=== PATIENT | female | born 1980 | race Caucasian/White ===

== ENCOUNTER → 2017-08-11 | Outpatient (REF) | payer OTHER ==
[~2017-08-11] MED LIST: ASCO-182 PO; CHOL10005 PO; OMEG1600; PREN-161 PO
== END ==
LOC: ZZSENDIN 14:24
PROVIDERS: ATTEND Obstetrics & Gynecology
DX: N89.8 Other specified noninflammatory disorders of vagina (principal)
CPT/HCPCS: 84112

== ENCOUNTER 2017-08-12 17:56 | Inpatient (IN) | payer OTHER ==
[~2017-08-12] VITALS: Ht 174 cm; Wt 82.6 kg
--- NOTE | 2017-08-12 18:28 | History & Physical ---
History of Present Illness Age of Patient: 37 : 1 Para or TPAL: 0 Estimated Gestational Age: 39.5 Chief Complaint loss of fluid History of Present Illness Presents for possible ruptured membranes as she has been having a gush of fluid from time to time. Was checked in the office yesterday and was negative. No significant contraction pattern so far. Past Medical, Surgical, Family and Obstetric Histories reviewed. Please see [facility] chart. Review of Systems All Systems Reviewed/Normal: Yes, Except as Noted Exam General Exam General Apperance: Alert/Awake/No Acute Distress Neuro: No Gross deficits Cardiovascular: Regular Rate and Rhythm Abdomen: Soft, Non-Tender, Non-Distended, Gravid - Non-Tender Psychological: Alert & Oriented X3, Appropriate Mood & Affect Cervical Dialation: 1.5 Cervical Consistency: Soft Cervical Position: Anterior Station: -2 Presentation: Vertex Fetus Heart Tone Variabilty: Moderate FHT Accelerations: 15X15 FHT Category: I Medical Decision Making VTE Prophylasis: Adult Pharmacological Contraindicati: Pt at Low Risk for VTE Mechanical Contraindications: Pt at Low Risk for VTE Assessment and Plan Problems: (1) Amniotic fluid leaking Assessment & Plan: Will check amnisure to determine. Not grossly ruptured. Does not seem to be in active labor. CHRIS HUNG MD Aug 12, 2017 18:28
[2017-08-12 18:51] VITALS: BP 115/63; BMI 27.3
[2017-08-12] MEDS ORDERED: PREN-161 PO (18:56)
[2017-08-12] MEDS ORDERED: OMEG1600 (18:56)
[2017-08-12] MEDS ORDERED: ASCO-182 PO (18:56)
[2017-08-12] MEDS ORDERED: CHOL10005 PO (18:56)
[2017-08-12] MEDS ORDERED: OXYTOCIN 30 UNIT/NS 500 ML 500 ML IV PRN ×2 (19:11)
[2017-08-12] MEDS ORDERED: FAMOTIDINE(*) 20MG/50ML PREMIX 50 ML IVPB PRN (19:11)
[2017-08-12] MEDS ORDERED: METOCLOPRAMIDE 10 MG/2 ML SDV IVP PRN (19:15)
[2017-08-12] MEDS ORDERED: cefOXitin/DEX(*) 2GM/50ML PREM 50 ML IVPB PRN (19:15)
[2017-08-12] MEDS ORDERED: LIDOCAINE 1% LOCAL 300 MG/30ML INJ PRN (19:15)
[2017-08-12] MEDS ORDERED: MISOPROSTOL 25 MCG CAP PV PRN (19:15)
[2017-08-12] MEDS ORDERED: ACETAMINOPHEN 500 MG TAB PO PRN (19:15)
[2017-08-12] MEDS ORDERED: ONDANSETRON 4 MG/2 ML VIAL IVP PRN (19:15)
[2017-08-12] MEDS ORDERED: TERBUTALINE SULF 1 MG/ML VIAL SUBQ PRN (19:15)
[2017-08-12] MEDS ORDERED: fentaNYL CITR 100 MCG/2 ML AMP IVP PRN (19:15)
[2017-08-12] MEDS ORDERED: LIDOCAINE/SOD BICARB 8.4% SYR SC PRN (19:15)
[2017-08-12] MEDS ORDERED: LR(*) 1000 ML BAG 1,000 ML ONE (19:23)
[2017-08-12] MEDS: LR(*) 1000 ML BAG 1,000 ML IV SCH (19:35)
[2017-08-12 19:44] LABS: PLATELET COUNT, AUTOMATED 205 K/uL (150-450)
[2017-08-12 19:45] VITALS: Ht 174 cm; Wt 82.6 kg
[2017-08-12 20:00] VITALS: BP 111/71
[2017-08-13] VITALS (11 sets, daily range): BP systolic 84–105; BP diastolic 37–76
--- NOTE | 2017-08-13 00:20 | Labor Progress Note ---
Labor Subjective Progress Notes Subjective TC from nurse and following remote strip review. Cervical exam is essentially unchanged from my exam. Discussed with pt on phone. She describes her desire to manage her labor naturally and patiently. Her contractions have increased in strength and intensity since her admission. Baby has been category 1 and no uterine tenderness or fever. Vaginal Discharge/Fluid: Clear Fluid Labor Objective Vital Signs Vital Signs Date Time Temp Pulse Resp B/P (MAP) Pulse Ox O2 Delivery O2 Flow Rate FiO2 08/12/17 20:00 98.0 67 17 111/71 (84) 08/12/17 18:51 99 Room Air Cervical Dialation: 2 (rn exam) Cervical Effacement (%): 75 Cervical Consistency: Soft Cervical Position: Anterior Station: -2 Fetus FHT Category: I Other Result Diagram: 08/12/171934 Assessment and Plan Problems: (1) Amniotic fluid leaking Assessment & Plan: Discussed with pt options for management: passive vs active. It was explained that we cannot say for how long she has been ruptured and that the risk of infection increases with time and also that as infection develops, more risk to baby develops as well as interventions. Nevertheless, she has been stable and seems to be slowly developing a labor pattern without signs of infection currently. She also expresses her preference to be patient and expectantly manage for now. 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 CHRIS HUNG MD Aug 13, 2017 00:20
[2017-08-13] MEDS ORDERED: OXYTOCIN 30 UNIT/NS 500 ML 500 ML IV PRN (06:18)
--- NOTE | 2017-08-13 07:51 | Labor Progress Note ---
Labor Subjective Progress Notes Subjective Pt is feeling much more uncomfortable with pitocin, which was started at 0600. She is on pitocin 6mu/min now. She feels well otherwise. Labor Objective Vital Signs Vital Signs Date Time Temp Pulse Resp B/P (MAP) Pulse Ox O2 Delivery O2 Flow Rate FiO2 08/12/17 20:00 98.0 67 17 111/71 (84) 08/12/17 18:51 99 Room Air Vaginal Discharge/Fluid?: Clear Fluid Cervical Dialation: 3 Cervical Effacement (%): 100 Cervical Consistency: Soft Cervical Position: Mid Station: -1 Presentation: Vertex Uterine Contractions(Q min): 3 Uterine Contraction Strength: Moderate UC Resting Tone: Soft Fetus FHT Category: I General Exam General Appearance: Alert/Awake/No Acute Distress Respiratory: No Respiratory Distress Abdomen: Gravid - Non-Tender : Normal Extremities: No Cyanosis,Clubbing or Edema Integumentary: Skin Intact without Lesions or Rash Psychological: Alert & Oriented X3, Appropriate Mood & Affect Other Result Diagram: 08/12/171934 Assessment and Plan Problems: (1) PROM (premature rupture of membranes) Status: Acute Assessment & Plan: Pt appears to be transitioning to active labor after starting pitocin. She would like to go unmedicated. Problem Qualifiers (1) PROM (premature rupture of membranes): PROM onset of labor timing: onset of labor more than 24 hours following rupture PROM gestational age: full term Qualified Codes: O42.12 - Full-term premature rupture of membranes, onset of labor more than 24 hours following rupture ARNIE BEARDEN MD Aug 13, 2017 07:51
[2017-08-13] MEDS ORDERED: ceFAZolin(*) 2GM/D5W 50ML 50 ML IVPB PRN (08:09)
[2017-08-13] MEDS ORDERED: LIDO/EPI 2% MPF 1:200,000 20ML EPI PRN (08:15)
[2017-08-13] MEDS ORDERED: ePHEDrine 25 MG/5 ML DISP.SYR IVP PRN (08:15)
[2017-08-13] MEDS ORDERED: FENTANYL/ROPIVACAINE 100 ML BAG EPI PRN (08:15)
[2017-08-13] MEDS ORDERED: BUPIVACAINE 0.25% MPF INJ EPI PRN (08:15)
[2017-08-13] MEDS ORDERED: LIDOCAINE/PF 2% 200MG/10ML AMP 200 MG/10 ML AMPUL EPI PRN (08:15)
[2017-08-13] MEDS ORDERED: fentaNYL CITR 100 MCG/2 ML AMP IT PRN (08:15)
[2017-08-13] MEDS ORDERED: BUPIVACAINE 0.5% INJ 30ML VIAL EPI PRN (08:15)
[2017-08-13] MEDS ORDERED: NS(*) 0.9% 100 ML BAG 100 ML ONE (11:28)
[2017-08-13] MEDS ORDERED: fentaNYL CITR 100 MCG/2 ML AMP ONE (11:30)
[2017-08-13] MEDS ORDERED: EPIDURAL KEYS XX PRN (12:00)
--- NOTE | 2017-08-13 12:42 | Labor Progress Note ---
Labor Subjective Progress Notes Subjective Pt is doing well. She is now comfortable with epidural. Labor Objective Vital Signs Vital Signs Date Time Temp Pulse Resp B/P (MAP) Pulse Ox O2 Delivery O2 Flow Rate FiO2 08/12/17 20:00 98.0 67 17 111/71 (84) 08/12/17 18:51 99 Room Air Vaginal Discharge/Fluid?: Clear Fluid Cervical Dialation: 6 Cervical Effacement (%): 100 Cervical Consistency: Soft Cervical Position: Mid Station: 0 Presentation: Vertex Uterine Contractions(Q min): 3 Fetus FHT Category: I General Exam General Appearance: Alert/Awake/No Acute Distress Abdomen: Gravid - Non-Tender Psychological: Alert & Oriented X3, Appropriate Mood & Affect Other Result Diagram: 08/12/17 1935 Assessment and Plan Problems: (1) PROM (premature rupture of membranes) Status: Acute Assessment & Plan: Pt is now 6cm and has epidural. Continue with pit protocol. Problem Qualifiers (1) PROM (premature rupture of membranes): PROM onset of labor timing: onset of labor more than 24 hours following rupture PROM gestational age: full term Qualified Codes: O42.12 - Full-term premature rupture of membranes, onset of labor more than 24 hours following rupture ARNIE BEARDEN MD Aug 13, 2017 12:42
[2017-08-13] MEDS: LR(*) 1000 ML BAG 1,000 ML IV SCH ×2 (12:51→16:58)
--- NOTE | 2017-08-13 17:01 | Labor Progress Note ---
Labor Subjective Progress Notes Subjective Pt is relatively comfortable. She feels some pressure. Labor Objective Vital Signs Vital Signs Date Time Temp Pulse Resp B/P (MAP) Pulse Ox O2 Delivery O2 Flow Rate FiO2 08/12/17 20:00 98.0 67 17 111/71 (84) 08/12/17 18:51 99 Room Air Vaginal Discharge/Fluid?: Clear Fluid Cervical Dialation: 9 Cervical Effacement (%): 100 Station: +1 Presentation: Vertex Uterine Contractions(Q min): 3 Fetus FHT Category: I General Exam General Appearance: Alert/Awake/No Acute Distress Psychological: Alert & Oriented X3, Appropriate Mood & Affect Other Result Diagram: 08/12/17 193 Assessment and Plan Problems: (1) PROM (premature rupture of membranes) Status: Acute Assessment & Plan: Pt is progressing well. Will labor down another 2 hours and start pushing if station is improved. Problem Qualifiers (1) PROM (premature rupture of membranes): PROM onset of labor timing: onset of labor more than 24 hours following rupture PROM gestational age: full term Qualified Codes: O42.12 - Full-term premature rupture of membranes, onset of labor more than 24 hours following rupture ARNIE BEARDEN MD Aug 13, 2017 17:01
[2017-08-13] MEDS ORDERED: ceFAZolin(*) 2GM/D5W 50ML 50 ML IVPB ONE ×2 (19:50→20:15)
[2017-08-13] MEDS ORDERED: OXYTOCIN 10 UNIT/ML SDV IM ONE (19:50)
--- NOTE | 2017-08-13 20:11 | OB Delivery Note ---
Delivery Note Vaginal Delivery Type: Spont. Vaginal Delivery Delivery Date: Aug 13, 2017 Delivery Time: 19:39 Estimated Gestational Age(wks): 39.6 Length of Labor Stage I (hrs): 6 Length of Labor Stage II (hrs): 1 Labor Stage III (minutes): 9 Delivery Anesthesia: Epidural Infant Sex: Female [place] Apgars: 1 Minute (6), 5 Minute (6) Repair Needed: Labial, 2nd Degree Estimated Blood Loss: 500 Notes: PROM at 0100 on 08/12/17; Pitocin at 0620 on 08/13/17; Reassuring FHT and mom afebrile during delivery; Terminal thick meconium; in guarded condition in nursery after delivery Critical Systems Technician in Attendence: Yes (after delivery) ARNIE BEARDEN MD Aug 13, 2017 20:11
[2017-08-13] MEDS ORDERED: MAGNESIUM HYDROXIDE* 30ML UDCP PO PRN (20:15)
[2017-08-13] MEDS ORDERED: APAP/HYDROCODONE 325/5 TAB PO PRN (20:15)
[2017-08-13] MEDS ORDERED: LANOLIN OINT 7 GM TUBE TP PRN (20:15)
[2017-08-13] MEDS ORDERED: ACETAMINOPHEN 325 MG TAB PO PRN (20:15)
[2017-08-13] MEDS ORDERED: HYDROCORTISONE 2.5% CR 30GM TB PR PRN (20:15)
[2017-08-13] MEDS ORDERED: IBUP800T37 PO (20:20)
[2017-08-13] MEDS ORDERED: LOR5/325 PO (20:20)
[2017-08-13] MEDS: DOCUSATE CALCIUM 240 MG CAP PO SCH (20:44)
[2017-08-13] MEDS: IBUPROFEN 800 MG TAB PO SCH (20:44)
[2017-08-13] MEDS: BENZOCAINE 20% 60 ML BTL TP PRN (20:45)
[2017-08-13] MEDS: GLYCERIN/WITCH HAZEL LEAF 1 PK TP PRN (20:45)
--- NOTE | 2017-08-13 21:01 | DELIVERY NOTE ---
DELIVERY DATE: August 13, 2017 SURGEON: Berenice Moreau MD ANESTHESIA: Epidural by David Herr CRNA PREOPERATIVE DIAGNOSIS Intrauterine at 39 weeks and five days with premature rupture of membranes. POSTOPERATIVE DIAGNOSIS 1. Intrauterine at 39 weeks and five days with premature rupture of membranes. 2. Delivery of a viable female infant at 1939 hours weighing 3476 grams with Apgars of 6 at one minute and 6 at five minutes. PROCEDURE 1. Spontaneous vaginal delivery. 2. Repair of second degree midline laceration and left labial laceration. ESTIMATED BLOOD LOSS 500 mL INDICATIONS FOR PROCEDURE This patient is a 37-year-old 1, para 0 who presented at 39 weeks and five days with spontaneous rupture of membranes at approximately 0100 hours on August 12, 2017. She presented at 1820 hours on that day and was found to be 2 cm dilated, 75% effaced and -2 station. She was love approximately every five to seven minutes at that time, and upon admission discussed with Dr. Izaguirre the option of augmentation. The patient declined any augmentation at that time and requested further monitoring until 0600 hours on August 13, 2017. At that time she and Dr. Izaguirre agreed initiate Pitocin. She was started on Pitocin at 2 milliunits per minute and increased gradually. She then was able to progress throughout the day and eventually became complete at 1844 hours and at +2 station. She therefore was prepared for delivery. PROCEDURE The patient was properly identified. She was in the dorsal lithotomy position and prepped and draped in the usual fashion for a vaginal delivery. She was asked to push and within approximately 30 minutes of pushing was able to deliver the vertex in the PORTER position over an intact perineum. A nuchal cord was checked, but not noted. The anterior shoulder delivered easily , at which time extremely thick meconium was noted. The posterior shoulder was then easily delivered followed by the remainder of the . The was dried, stimulated and the oropharynx and nasopharynx were bulb suctioned. The then had spontaneous cry and spontaneous movement of all four extremities. The was relatively quiet and had a difficult time breathing. Therefore the cord was clamped times two and cut by the father of the baby. The was taken to the warmer in the room of delivery where the nurses could attend to the . Dr. Hernandez, the machine operator hop worker, was contacted immediately after delivery. The IV at this time had infiltrated, therefore Pitocin 10 milliunits was administered intramuscularly to help clamp the uterus. The placenta was subsequently delivered spontaneously intact and was passed off the table. Examination of the cervix, vaginal vault and perineum revealed bilateral labial lacerations as well as a second degree midline laceration. The midline laceration was repaired using a 2-0 Vicryl in the normal fashion. The right labial laceration was hemostatic and did not need repair. The left labial laceration was repaired with a 3-0 Vicryl in a running nonlocking fashion. Once hemostasis was assured, the fundal tone was adequate and the procedure was terminated. All sponge and needle count were correct at the end of this procedure. Please note, the was taken directly to the nursery where Dr. Hernandez and the nurses were attending to the baby. At the time of this dictation a chest x- ray had been performed and Respiratory Therapy was assisting with the . The was placed on CPAP. MOISES
[2017-08-13] MEDS ORDERED: LR 500 ML BAG 500 ML IV ONE (22:34)
[2017-08-14] MEDS ORDERED: LR 500 ML BAG 500 ML IV ONE (01:10)
[2017-08-14] MEDS ORDERED: ePHEDrine 25 MG/5 ML DISP.SYR IVP ONE (01:10)
[2017-08-14 02:10] VITALS: BP 94/51
[2017-08-14 03:45] VITALS: BP 99/54
[2017-08-14] MEDS: IBUPROFEN 800 MG TAB PO SCH ×3 (06:20→22:41)
--- NOTE | 2017-08-14 08:44 | OB/GYN Progress Note ---
OB Subjective Progress Notes Subjective Doing well. Pain controlled with oral medications. Tolerating regular diet. Ambulating. Voiding. Normal lochia. No preeclampsia symptoms. OB Objective Physical Exam Vital Signs Date Time Temp Pulse Resp B/P (MAP) Pulse Ox O2 Delivery O2 Flow Rate FiO2 08/14/17 03:45 98.4 67 16 99/54 (69) Room Air 08/13/17 22:15 97 General Appearance: Alert/Awake/No Acute Distress Neurological: No Gross deficits Cardiovascular: Normal Rhythm & Peripheral Pulses, Regular Rate and Rhythm Respiratory: No Respiratory Distress, Clear to Auscultation : Normal Extremities: No Cyanosis,Clubbing or Edema Integumentary: Skin Intact without Lesions or Rash Psychological: Alert & Oriented X3, Appropriate Mood & Affect Result Diagram: 08/12/171934 Assessment and Plan Problems: (1) Care and examination immediately after delivery Assessment & Plan: PPD#1 s/p . Pt is doing very well. Her baby is improving and on oxygen. Anticipate discharge home or room-in tomorrow. (2) PROM (premature rupture of membranes) Status: Acute Problem Qualifiers (1) PROM (premature rupture of membranes): PROM onset of labor timing: onset of labor more than 24 hours following rupture PROM gestational age: full term Qualified Codes: O42.12 - Full-term premature rupture of membranes, onset of labor more than 24 hours following rupture ARNIE BEARDEN MD Aug 14, 2017 08:44
[2017-08-14] MEDS: DOCUSATE CALCIUM 240 MG CAP PO SCH ×2 (08:58→22:41)
[2017-08-14 09:00] VITALS: BP 110/56
[2017-08-14] MEDS ORDERED: INFLUENZA VIRUS VAC 0.5 ML SYR IM ONLY ONE (09:00)
[2017-08-14] MEDS ORDERED: MEASLES,MUMP,RUBELLA VAC 0.5ML SUBQ ONE (09:00)
[2017-08-14] MEDS ORDERED: DIPHTH/TETANUS/ACEL. PERTUSSIS IM ONLY ONE (09:00)
--- NOTE | 2017-08-14 11:18 | Procedure Note ---
Anesthetic Placement Note Anesthesia Plan: LEB Permit for Anesthesia Signed: Yes Anesthesia Technique: Patient Sitting Anesthesia Prep: Betadine Interspace: L 3-4 Local Anesthetic: 1% Lidocaine, 25 Gauge Needle Amount Local - cc's: 3 Anesthesia Needle: 17g Touhy/Schliff Anesthesia Attempts: 1 Loss of Resistance: Normal Saline Depth of LOS (cm): 5 Catheter Type: Farrell - Spring Wound Epidural Dressing: Tegaderm, Tape, Adhesive Cisco Anesthesia Tray: Lot Number ([id number]), Expiration Date (2018-05-02), Reference Number ([id number]) Anesthesia Medications: Epidural Test Dose: 1.5 Lido/Epi (1:200,000), Dose - mL (3), Time (1203), Negative (No S/S IV or IT injection.) Epidural Loading Dose: With Fentanyl 2mcg/ml, Dose - ml (15), Time (1203), Other (0.1% Ropivicaine) Epidural Infusion: With Fentanyl 2mcg/ml, Start Time: (1219), Other (0.1% Ropivicaine) Epidural Pump Setting: Bolus Dose - mL (4), Lockout - Minutes (15), Maintenance Rate - mL/hr (10), Maximum per Hour - mL (26) Complications: None Comment: Pt. concerned about being unable to move, legs being numb, elected to use half strength epidural infusion solution. Following loading dose (total 15ml in 5ml increments), she reports less uterine contraction pain, VSS, minimal motor block , R=L. SUSANA SAGASTUME CRNA Aug 13, 2017 12:39
--- NOTE | 2017-08-14 11:19 | Anesthesia OB Pre-Anes Eval ---
History of Present Illness Anesthesia Start Date: Aug 13, 2017 Anesthesia Start Time: 11:45 OB Anesthesia Diagnosis: induction - elective, spontaneous ROM EDC: Aug 14, 2017 : 1 Para: 1 Pain Ratin Result Diagram: 08/12/171934 Height (Inches): 68.50 Weight (Pounds): 182 BMI Calculated: 27.27 Past Medical History Medical History: no pertinent history Surgical History: noncontributory Previous Anesthesia: general Attended Childbirth Classes?: No Hx Anesthesia Reactions: No Hx Family Anesthesia Reaction: No Home Meds Active Scripts Hydrocodone Bit/Acetaminophen (HYDROCODON-ACETAMINOPHEN 5-325) 1 Each Tablet, 1- 2 EACH PO Q4-6H Y for pain, #40 TAB 0 Refills Prov:ARNIE BEARDEN MD 08/13/17 Reported Medications [place]-3/Dha/Epa/Fish Oil (Fish Oil 1,600 mg/5 ml Liquid) 1,600 Mg/5 Ml Liquid 08/12/17 Ascorbic Acid (VITAMIN C) 500 Mg Tablet, 500 MG PO, TAB 08/12/17 Cholecalciferol (Vitamin D3) (VITAMIN D3) 1,000 Unit Tablet, 1000 UNIT PO, TAB 08/12/17 Vits #93/Iron Fum/Fa ( FORMULA TABLET) 1 Each Tablet, 1 EACH PO 08/12/17 Allergies: Coded Allergies: No Known Drug Allergies (Unverified , 08/12/17) Anesthesia OB ROS Airway Class: l GI ROS: clear liquids, ice chips Last Solids Date: Aug 12, 2017 Last Solids Time: 20:00 ASA Classification: 2 Assessment and Plan Anesthesia Plan: MARK Anesthesia Stop Day: Aug 13, 2017 Anesthesia Stop Time: 20:00 SUSANA SAGASTUME CRNA Aug 13, 2017 12:32
--- NOTE | 2017-08-14 11:21 | Anesthesia Post Eval Note ---
Anesthesia Post Eval Note Pt able to participate in Eval: Yes Cardiovascular Status: Satisfactory Respiratory Status: Satisfactory Pain Managment: Satisfactory PO Nausea/Vomiting: Satisfactory Temperature Management: Satisfactory Mental Status: Satisfactory, Alert, Oriented X3 Post-Op Hydration Status: Satisfactory, Tolerating PO Well, Voiding w/o Difficulty Anesthesia Type: LEB Anesthesia Tolerance: Ambulatory without S/S PDPD, no apparent complications. SUSANA SAGASTUME CRNA Aug 14, 2017 11:21
[2017-08-14 12:40] VITALS: BP 112/60
[2017-08-14 16:00] VITALS: BP 111/53
[2017-08-14] MEDS: GLYCERIN/WITCH HAZEL LEAF 1 PK TP PRN (18:10)
[2017-08-14 23:00] VITALS: BP 108/61
[2017-08-15 03:15] VITALS: BP 100/48
[2017-08-15] MEDS: IBUPROFEN 800 MG TAB PO SCH ×2 (07:24→14:28)
[2017-08-15 08:30] VITALS: BP 109/67
[2017-08-15] MEDS: DOCUSATE CALCIUM 240 MG CAP PO SCH (08:56)
--- NOTE | 2017-08-15 08:56 | OB/GYN Progress Note ---
OB Subjective Progress Notes Subjective Doing good this morning. Pain controlled iwth PO pain medications. Getting frustrated with not being able to void. Bleeding minimal. No fevers or chills. Pumping secondary to respiratory status. GI: NEG Nausea, NEG Vomiting, NEG Flatus, NEG Bowel Movement : Vaginal Bleeding, Moderate Pain: Mild, Tolerating PO Pain Meds Neurological: No Headache, No Other Eyes: No Visual Disturbances OB Objective Physical Exam Vital Signs Date Time Temp Pulse Resp B/P (MAP) Pulse Ox O2 Delivery O2 Flow Rate FiO2 08/15/17 08:30 99.0 72 16 109/67 (81) 97 Room Air General Appearance: Alert/Awake/No Acute Distress Neurological: No Gross deficits Eyes: Normal Extraocular Movement & Vison, PERRLA ENT: Normal Neck: No Masses Cardiovascular: Normal Rhythm & Peripheral Pulses, Regular Rate and Rhythm Respiratory: No Respiratory Distress, Clear to Auscultation Abdomen: Soft, Non-Tender, Non-Distended : Normal Extremities: No Cyanosis,Clubbing or Edema Integumentary: Skin Intact without Lesions or Rash Psychological: Alert & Oriented X3, Appropriate Mood & Affect Result Diagram: 08/12/171934 Assessment and Plan SECOND BUTLER Assessment: Stable SECOND BUTLER Plan: Discharge Home Today Problems: (1) Care and examination immediately after delivery Assessment & Plan: Pt having difficulty with voiding. Will continue to monitor patient status with void. Straight cath as necessary. Pt getting frustrated with straight cath. Will place ward catheter at patient request and have her follow up in the clinic next week for removal. (2) PROM (premature rupture of membranes) Status: Acute Problem Qualifiers (1) PROM (premature rupture of membranes): PROM onset of labor timing: onset of labor more than 24 hours following rupture PROM gestational age: full term Qualified Codes: O42.12 - Full-term premature rupture of membranes, onset of labor more than 24 hours following rupture ZULEMA MADISON DO Aug 15, 2017 08:56
--- NOTE | 2017-08-15 08:59 | OB/GYN Discharge Summary ---
Discharge Summary Reason for Hosp/Final Diag: (1) Care and examination immediately after delivery (2) PROM (premature rupture of membranes) Status: Acute Hospital Course & Plan: Presented with a complaint of loss of amniotic fluid. Progressed with oxytocin to complete and delivered vaginally. Pt remained in the hospital for 2 days post . Was having difficulty voiding. Did require multiple straight catheters on post day 2 but eventually did not require a ward catheter. Pt was discharged home. [place] Vital Signs Vital Signs Date Time Temp Pulse Resp B/P (MAP) Pulse Ox O2 Delivery O2 Flow Rate FiO2 08/15/17 08:30 99.0 72 16 109/67 (81) 97 Room Air Weight (Pounds): 182 Result Diagram: 08/12/171934 Condition: Improved Discharge: Home Home Meds Active Scripts Hydrocodone Bit/Acetaminophen (HYDROCODON-ACETAMINOPHEN 5-325) 1 Each Tablet, 1- 2 EACH PO Q4-6H Y for pain, #40 TAB 0 Refills Prov:ARNIE MOREAU MD 08/13/17 Ibuprofen (IBUPROFEN) 800 Mg Tablet, 1 TAB PO Q8H Y for pain, #40 TAB 0 Refills TAKE WITH FOOD EVERY 8 HOURS Prov:ARNIE MOREAU MD 08/13/17 Reported Medications [place]-3/Dha/Epa/Fish Oil (Fish Oil 1,600 mg/5 ml Liquid) 1,600 Mg/5 Ml Liquid 08/12/17 Ascorbic Acid (VITAMIN C) 500 Mg Tablet, 500 MG PO, TAB 08/12/17 Cholecalciferol (Vitamin D3) (VITAMIN D3) 1,000 Unit Tablet, 1000 UNIT PO, TAB 08/12/17 Vits #93/Iron Fum/Fa ( FORMULA TABLET) 1 Each Tablet, 1 EACH PO 08/12/17 [facility] [phone], Dr. Moreau [phone] Follow up in: 5-7 days Discharge Diet: As Tolerates, Resume Prior Admit Diet, Increase Fluid Intake Discharge Activity: As Tolerates, Pelvic Rest Problem Qualifiers (1) PROM (premature rupture of membranes): PROM onset of labor timing: onset of labor more than 24 hours following rupture PROM gestational age: full term Qualified Codes: O42.12 - Full-term premature rupture of membranes, onset of labor more than 24 hours following rupture ZULEMA MADISON DO Aug 15, 2017 08:59
[2017-08-15 14:06] VITALS: BP 108/56
[2017-08-15] MEDS: GLYCERIN/WITCH HAZEL LEAF 1 PK TP PRN (19:58)
[2017-08-15] MEDS: BENZOCAINE 20% 60 ML BTL TP PRN (19:58)
[2017-08-15 20:00] VITALS: BP 102/50
== END 2017-08-15 20:13 | disposition home or self-care (01) | DRG 775 ==
LOC: OB 17:56 → UNDOADMOB 17:56 → OBSVTOIN 17:56 → INTOOBSV 17:56
PROVIDERS: ADMIT Obstetrics & Gynecology; ATTEND Obstetrics & Gynecology
PROC: 10E0XZZ Delivery of Products of Conception, External Approach (ICD-10-PCS; principal; 2017-08-13)
PROC: 0KQM0ZZ Repair Perineum Muscle, Open Approach (ICD-10-PCS; 2017-08-13)
DX: O42.12 Full-term premature rupture of membranes, onset of labor more than 24 hours following rupture (principal); O77.0 Labor and delivery complicated by meconium in amniotic fluid; O70.1 Second degree perineal laceration during delivery; R39.198 Other difficulties with micturition; Z3A.39 39 weeks gestation of pregnancy; Z37.0 Single live birth
CPT/HCPCS: 84112; 85025; 86850; 86900; 86901; 88307; J0690; J2590; J7120

== ENCOUNTER → 2018-04-09 | Outpatient (CLI) | payer OTHER ==
[2017-08-12 19:45] VITALS: BMI 27.3
[~2018-04-09] MED LIST changes: +FOLI-68 PO; +IBUP800T37 PO; +LACT1CAP6 PO; +LOR5/325 PO; +MULT-865 PO
[2018-04-09 08:48] LABS: PLATELET COUNT, AUTOMATED 225 K/uL (150-450)
== END ==
LOC: LAB 08:17
PROVIDERS: ATTEND Obstetrics & Gynecology
DX: Z34.91 Encounter for supervision of normal pregnancy, unspecified, first trimester (principal)
CPT/HCPCS: 36415; 81001; 85025; 86592; 86703; 86762; 86850; 86900; 86901; 87088; 87340

== ENCOUNTER → 2018-04-28 | Outpatient (CLI) | payer OTHER ==
[2017-08-12 19:45] VITALS: BMI 27.3
[~2018-04-28] MED LIST changes: +FLU180SY11 IM
== END ==
LOC: LAB 09:24
PROVIDERS: ATTEND Student in an Organized Health Care Education/Training Program
DX: Z34.91 Encounter for supervision of normal pregnancy, unspecified, first trimester (principal)
CPT/HCPCS: 87491; 87591

== ENCOUNTER → 2018-05-26 | Outpatient (CLI) | payer OTHER ==
[2017-08-12 19:45] VITALS: BMI 27.3
== END ==
LOC: LAB 11:59
PROVIDERS: ATTEND Obstetrics & Gynecology
DX: Z02.9 Encounter for administrative examinations, unspecified (principal)

== ENCOUNTER → 2018-07-15 | Outpatient (CLI) | payer OTHER ==
[2017-08-12 19:45] VITALS: BMI 27.3
--- NOTE | 2018-07-15 12:31 | RADIOLOGY IMAGING REPORT ---
FACILITY: [facility] PATIENT NAME: Khushbu Hassan : 1980 MR: [id number] V: [id number] EXAM DATE: ORDERING PHYSICIAN: ARNIE BEARDEN TECHNOLOGIST: Location: [facility] [place] Patient: Khushbu Hassan : 1980 Visit/Account:[id number] Date of Sevice: 07/15/2018 [facility] OB ANATOMICAL SURVEY HISTORY: Anatomical survey ADDITIONAL HISTORY: None. COMPARISON: None. TECHNIQUE: Transabdominal imaging was performed for assessment of the fetus and maternal pelvic s tructures. Transvaginal imaging was not performed. FINDINGS: Intrauterine gestations: One. presentation: Variable. heart rate: 125 bpm. Amniotic fluid volume: Normal; RUPAL 15.84 cm; MVP 5.02 cm. Placenta: Anterior and high. Uterus: Gravid, otherwise unremarkable. Maternal adnexa/ovaries: Grossly unremarkable, ovaries not visualized.. Cervix: Grossly long and closed. Gestational Parameters: BPD: 5.18 cm; 21 weeks/ 5 days HC: 19.11 cm; 21 weeks/ 3 days AC: 17.00 cm; 22 weeks/ 0 days FL: 3.50 cm; 21 weeks/ 1 days Average ultrasound age (AUA): 21 weeks/ 4 days Estimated age based on LMP: 20 weeks/ 5 days Anatomic Survey: Intracranial structures, 4-chamber heart, stomach, kidneys, urinary bladder, spine, 3-vessel cord and cord insertion are unremarkable. Two upper and two lower extremities visualized. Aortic arch and pu lmonary outflow tracts are normal. The upper lip and palate are intact. IMPRESSION: 1. Normal survey. 2. Ultrasound age 21 weeks/4 days consistent with gestational age based on LMP. Gestational age by LMP is 20 weeks/ 5 days with estimated date of delivery 11/27/2018. . Report Dictated By: Edd Clement at 07/15/2018 12:23 PM Report E-Signed By: Edd Clement at 07/15/2018 12:28 PM WSN:[email or web address]
== END ==
LOC: RAD 08:44
PROVIDERS: ATTEND Obstetrics & Gynecology
DX: O09.522 Supervision of elderly multigravida, second trimester (principal); Z3A.21 21 weeks gestation of pregnancy

== ENCOUNTER → 2018-09-17 | Outpatient (CLI) | payer OTHER ==
[2017-08-12 19:45] VITALS: BMI 27.3
[~2018-09-17] MED LIST changes: +DIPH0.5D12 IM
[2018-09-17 09:52] LABS: PLATELET COUNT, AUTOMATED 192 K/uL (150-450)
== END ==
LOC: LAB 08:24
PROVIDERS: ATTEND Advanced Practice Midwife
DX: Z34.92 Encounter for supervision of normal pregnancy, unspecified, second trimester (principal)
CPT/HCPCS: 36415; 82950; 85025

== ENCOUNTER → 2018-11-01 | Outpatient (CLI) | payer OTHER ==
[2017-08-12 19:45] VITALS: BMI 27.3
== END ==
LOC: LAB 07:56
PROVIDERS: ATTEND Advanced Practice Midwife
DX: Z36.85 Encounter for antenatal screening for Streptococcus B (principal)
CPT/HCPCS: 87081

== ENCOUNTER 2018-11-27 14:39 | Inpatient (IN) | payer OTHER ==
[~2018-11-27] VITALS: Ht 172.7 cm; Wt 84.8 kg
[~2018-11-27 14:39] MED LIST changes: -DIPH0.5D12 IM; +DIPH0.5S2 IM; +FLUC150T40 PO
[2018-11-27 15:00] VITALS: BP 113/74; Ht 172.7 cm; Wt 84.8 kg
[2018-11-27] MEDS ORDERED: OXYTOCIN 30 UNIT/D5LR 500 ML 500 ML IV PRN (16:19)
[2018-11-27] MEDS ORDERED: FAMOTIDINE(*) 20MG/50ML PREMIX 50 ML IVPB PRN (16:19)
[2018-11-27] MEDS ORDERED: fentaNYL CITR 100 MCG/2 ML AMP IVP PRN (16:20)
[2018-11-27] MEDS ORDERED: LIDOCAINE/SOD BICARB 8.4% SYR SC PRN (16:20)
[2018-11-27] MEDS ORDERED: METOCLOPRAMIDE 10 MG/2 ML SDV IVP PRN (16:20)
[2018-11-27] MEDS ORDERED: FLUSH 10 ML SYR IVP PRN (16:20)
[2018-11-27] MEDS ORDERED: LIDOCAINE 1% LOCAL 300 MG/30ML INJ PRN (16:20)
[2018-11-27] MEDS ORDERED: BUPIVACAINE 0.25% MPF INJ EPI PRN (16:25)
[2018-11-27] MEDS ORDERED: LIDOCAINE/PF 2% 200MG/10ML AMP 200 MG/10 ML AMPUL EPI PRN (16:25)
[2018-11-27] MEDS ORDERED: FENTANYL/ROPIVACAINE 100 ML BAG EPI PRN (16:25)
[2018-11-27] MEDS ORDERED: LIDO/EPI 2% MPF 1:200,000 20ML EPI PRN (16:25)
[2018-11-27] MEDS ORDERED: fentaNYL CITR 100 MCG/2 ML AMP IT PRN (16:25)
[2018-11-27] MEDS ORDERED: BUPIVACAINE 0.5% INJ 30ML VIAL EPI PRN (16:25)
[2018-11-27] MEDS ORDERED: FENTANYL/ROPIVACAINE 100ML BAG 100 ML ONE (16:42)
[2018-11-27] MEDS ORDERED: BUPIVACAINE 0.25% MPF INJ ONE (16:42)
[2018-11-27] MEDS ORDERED: fentaNYL CITR 100 MCG/2 ML AMP ONE (16:42)
[2018-11-27] MEDS ORDERED: ONDANSETRON 4 MG/2 ML VIAL ONE (16:42)
[2018-11-27] MEDS: LR(*) 1000 ML BAG 1,000 ML IV SCH ×2 (17:06→17:29)
[2018-11-27 17:16] LABS: PLATELET COUNT, AUTOMATED 190 K/uL (150-450)
--- NOTE | 2018-11-27 17:44 | History & Physical ---
History of Present Illness Age of Patient: 38 : 2 Para or TPAL: 1 EDC per LMP: Nov 27, 2018 Estimated Gestational Age: 40 Chief Complaint Contractions History of Present Illness 38 year old presented to L&D with c/o contractions. SVE 5 cm. Pt admitted for labor. PNC has been uncomplicated. History Patient's Blood Type: AB Positive Rubella Status: Immune Group B Strep Screen: Negative Allergies: Coded Allergies: No Known Drug Allergies (Unverified , 08/12/17) Family History: FH: prostate cancer FATHER Med Rec Home Meds Active Scripts Fluconazole (DIFLUCAN) 150 Mg Tablet, 150 MG PO QDAY for Yeast infection, #2 TAB 0 Refills Take 1 tab today and then 1 more tab in 3 days Prov:HEATHER COOK CNM 11/15/18 Reported Medications Folic Acid (FOLIC ACID) 1 Mg Tablet, 1 MG PO QDAY, TAB 04/09/18 Lactobacillus Combination No.4 (PROBIOTIC) Unknown Strength Capsule, PO, CAPSULE 02/01/18 Multivitamin (DAILY MULTIPLE VITAMIN) Unknown Strength Tablet, PO DAILY 02/01/18 Ascorbic Acid (VITAMIN C) 500 Mg Tablet, 500 MG PO, TAB 08/12/17 Cholecalciferol (Vitamin D3) (VITAMIN D3) 1,000 Unit Tablet, 1000 UNIT PO, TAB 08/12/17 Review of Systems All Systems Reviewed/Normal: Yes, Except as Noted Exam General Exam General Apperance: Alert/Awake/No Acute Distress Respiratory: No Respiratory Distress Abdomen: Gravid - Tender Cervical Dialation: 5 Cervical Effacement (%): 80 Cervical Consistency: Soft Cervical Position: Anterior Station: -2 Presentation: Vertex Uterine Contraction Strength: Strong UC Resting Tone: Soft Fetus Feeling Movement?: Yes Heart Tones: 130 Heart Tone Variabilty: Moderate FHT Accelerations: 15X15 FHT Decelerations: None FHT Category: I Medical Decision Making Data Points Result Diagram: 11/27/18 1649 Assessment and Plan 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
--- NOTE | 2018-11-27 17:52 | Anesthesia OB Pre-Anes Eval ---
History of Present Illness Anesthesia Start Date: Nov 27, 2018 Anesthesia Start Time: 16:50 OB Anesthesia Diagnosis: spontaneous labor EDC: Nov 27, 2018 : 2 Para: 11 Vital Signs: 112/64 78 18 Pain Ratin Heart Tones: 130 Result Diagram: 11/27/18 1649 Height (Inches): 68 Weight (Pounds): 182 Past Medical History Medical History: no pertinent history Previous Anesthesia: epidural Attended Childbirth Classes?: No Hx Anesthesia Reactions: No Hx Family Anesthesia Reaction: No Home Meds Active Scripts Fluconazole (DIFLUCAN) 150 Mg Tablet, 150 MG PO QDAY for Yeast infection, #2 TAB 0 Refills Take 1 tab today and then 1 more tab in 3 days Prov:JOYCEHEATHER M CNM 11/15/18 Reported Medications Folic Acid (FOLIC ACID) 1 Mg Tablet, 1 MG PO QDAY, TAB 04/09/18 Lactobacillus Combination No.4 (PROBIOTIC) Unknown Strength Capsule, PO, CAPSULE 02/01/18 Multivitamin (DAILY MULTIPLE VITAMIN) Unknown Strength Tablet, PO DAILY 02/01/18 Ascorbic Acid (VITAMIN C) 500 Mg Tablet, 500 MG PO, TAB 08/12/17 Cholecalciferol (Vitamin D3) (VITAMIN D3) 1,000 Unit Tablet, 1000 UNIT PO, TAB 08/12/17 Allergies: Coded Allergies: No Known Drug Allergies (Unverified , 08/12/17) Anesthesia OB ROS Neurological: No migraines/headaches, No seizures, No neuropathy, No other ENT: Denies Tooth caps, Denies Loose teeth, Denies Chipped teeth, Denies Dentures, Denies Bridges, Denies Retainers, Denies Veneers, Denies Implants, Denies Tongue ring, Denies Other Pulmonary: other (IRI) Airway Class: ll Cardiovascular ROS: No edema, No arrhythmia, No other GI ROS: clear liquids Last Solids Date: Nov 27, 2018 Last Solids Time: 12:00 ROS: No Herpes, No STD(s), No Liver Disease, No Renal Disease, No Other Endocrine ROS: No diabetes, No gestational diabetes, No thyroid disorder, No other Musculoskeletal ROS: No low back pain, No low back injury, No scoliosis, No other ASA Classification: 2 Assessment and Plan Anesthesia Plan: SOCORRO SAHU CRNA Nov 27, 2018 17:52
[2018-11-27] MEDS ORDERED: OMEG-11 PO (17:55)
--- NOTE | 2018-11-27 17:55 | Procedure Note ---
Anesthetic Placement Note Anesthesia Plan: CSE Permit for Anesthesia Signed: Yes Anesthesia Technique: Patient Sitting Anesthesia Prep: Chlorhexidine Interspace: L 3-4 Local Anesthetic: 1% Lidocaine Amount Local - cc's: 3 Anesthesia Attempts: 1 Loss of Resistance: Normal Saline Depth of HUMERA (cm): 4 Epidural Needle Placement: No CSF, No Blood, No Parasthesia Intrathecal Needle: 27 Gauge Pencan Cerebral Spinal Fluid: Yes, Clear Catheter Insertion (cm): 4 (8m @skin) Catheter Type: Farrell - Spring Wound Epidural Dressing: Tegaderm, Tape Anesthesia Tray: Lot Number ([id number]), Expiration Date (03/22), Reference Number ([id number]) Anesthesia Medications: Intrathecal Dose: mcg Fentanyl (10), mg Marcaine MPF (2.5), Time (1715) Epidural Test Dose: 1.5 Lido/Epi (1:200,000), Dose - mL (3), Time (1717), Negative Epidural Infusion: 0.2% Ropivicaine, With Fentanyl 2mcg/ml, Start Time: (1730) Epidural Pump Setting: Bolus Dose - mL (8), Lockout - Minutes (20), Maintenance Rate - mL/hr (6), Maximum per Hour - mL (30) Complications: None SOCORRO JETER CRNA Nov 27, 2018 17:55
--- NOTE | 2018-11-27 18:06 | Labor Progress Note ---
Labor Subjective Progress Notes Subjective Pt comfortable with epidural. 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
--- NOTE | 2018-11-27 20:26 | Anesthesia Progress Note ---
Progress/Maintenance Anesthesia Note Date: Nov 27, 2018 Anesthesia Note Time: 20:00 Pain Intensity: 2 Pump: On Pump Rate (ML/HR): 6 Sensory Level: Felling in lower abd Motor Level: Bending Knees-Bilateral Dilatation: 9 Position: Right Anesthesia Treatment: Pt SOCORRO Sauceda CRNA Nov 27, 2018 20:26
--- NOTE | 2018-11-27 21:00 | OB Delivery Note ---
Delivery Note Vaginal Delivery Type: Spont. Vaginal Delivery Delivery Date: Nov 27, 2018 Estimated Gestational Age(wks): 40 Delivery Anesthesia: Epidural Sex: Male Apgars: 1 Minute (9), 5 Minute (9) Repair Needed: Vaginal, 1st Degree (repaired in usual fashion with 3.0 rapide) Estimated Blood Loss: 200 Delivery Complications: Nuchal Cord (reduced on perineum) Notes: Pt pushed to deliver a viable male in the DIOR position over a first degree vaginal laceration. Nuchal cord x 1 noted and reduced on perineum. I nfant vigorous at , 3VC clamped and cut after 30 second delay, placed on mom's chest. Spontaneous delivery of intact placenta. Vaginal lac repaired in usual fashion with 3.0 rapide. EBL 200. I performed entire delivery and repair unassisted. In Store Marketing Associate in Attendence: ELDER Reynoso DO Nov 27, 2018 21:00
--- NOTE | 2018-11-27 21:36 | Anesthesia Progress Note ---
Assessment and Plan Anesthesia Stop Day: Nov 27, 2018 Anesthesia Stop Time: 21:10 SOCORRO JETER CRNA Nov 27, 2018 21:36
[2018-11-27] MEDS ORDERED: MEASLES,MUMP,RUBELLA VAC 0.5ML SUBQ ONE (21:40)
[2018-11-27] MEDS ORDERED: INFLUENZA VIRUS VAC 0.5ML SYR IM ONLY ONE (21:40)
[2018-11-27] MEDS ORDERED: BENZOCAINE 20% 60 ML BTL TP PRN (21:40)
[2018-11-27] MEDS ORDERED: DIPHTH/TETANUS/ACEL. PERTUSSIS IM ONLY ONE (21:40)
[2018-11-27] MEDS ORDERED: ACETAMINOPHEN 325 MG TAB PO PRN (21:40)
[2018-11-27] MEDS ORDERED: LANOLIN OINT 7 GM TUBE TP PRN (21:40)
[2018-11-27] MEDS ORDERED: GLYCERIN/WITCH HAZEL LEAF 1 PK TP PRN (21:40)
[2018-11-27] MEDS ORDERED: MAGNESIUM HYDROXIDE* 30ML UDCP PO PRN (21:40)
[2018-11-27] MEDS ORDERED: HYDROCORTISONE 2.5% CR 30GM TB PR PRN (21:40)
[2018-11-28] VITALS (7 sets, daily range): BP systolic 94–118; BP diastolic 54–63
[2018-11-28] MEDS: IBUPROFEN 800 MG TAB PO SCH ×3 (00:12→17:02)
[2018-11-28] MEDS: DOCUSATE CALCIUM 240 MG CAP PO SCH ×2 (09:32→20:57)
--- NOTE | 2018-11-28 11:18 | Anesthesia Post Eval Note ---
Anesthesia Post Eval Note Vital Signs 11/27/18 11/28/18 15:00 08:20 Temp 98.4 Pulse 68 Resp 18 B/P (MAP) 94/63 (73) Pulse Ox 95 O2 Delivery Room Air Pt able to participate in Eval: Yes Cardiovascular Status: Satisfactory Respiratory Status: Satisfactory Pain Managment: Satisfactory PO Nausea/Vomiting: Satisfactory Temperature Management: Satisfactory Mental Status: Satisfactory, Alert, Oriented X3 Post-Op Hydration Status: Satisfactory, Tolerating PO Well, Voiding w/o Difficulty Anesthesia Type: SOCORRO SAHU CRNA Nov 28, 2018 11:18
--- NOTE | 2018-11-28 12:17 | OB/GYN Progress Note ---
OB Subjective Progress Notes Subjective PT feeling well. Lochia decreasing. . No complaints. GI: NEG Nausea, NEG Vomiting : Voiding Well, Vaginal Bleeding, Scant Pain: Mild OB Objective Physical Exam Vital Signs Date Time Temp Pulse Resp B/P (MAP) Pulse Ox O2 Delivery O2 Flow Rate FiO2 11/28/18 08:20 98.4 68 18 94/63 (73) 11/27/18 15:00 95 Room Air Intake and Output 11/28/18 07:00 Intake Total 1000 ml Output Total 800 ml Balance 200 ml Intake IV Total 1000 ml Output Urine Total 800 ml # Voids 3 General Appearance: Alert/Awake/No Acute Distress Respiratory: No Respiratory Distress Abdomen: Soft, Non-Tender, Non-Distended, Fundus Firm Psychological: Alert & Oriented X3, Appropriate Mood & Affect Result Diagram: 11/28/18 0556 Assessment and Plan Post Day: 1 DIRECTOR OF SPA AND GUEST EXPERIENCE Assessment: Stable DIRECTOR OF SPA AND GUEST EXPERIENCE Plan: Routine Post- Care (Home tomorrow) ELDER AMATO DO Nov 28, 2018 12:16
[2018-11-28] MEDS: LR(*) 1000 ML BAG 1,000 ML IV SCH (12:19)
[2018-11-29] MEDS: IBUPROFEN 800 MG TAB PO SCH ×2 (03:29→08:40)
[2018-11-29 08:23] VITALS: BP 105/64
--- NOTE | 2018-11-29 08:27 | OB/GYN Progress Note ---
OB Subjective Progress Notes : Voiding Well, Vaginal Bleeding, Scant Pain: Mild, Comfortable, Tolerating PO Pain Meds OB Objective Physical Exam Vital Signs Date Time Temp Pulse Resp B/P (MAP) Pulse Ox O2 Delivery O2 Flow Rate FiO2 11/28/18 23:58 97.5 61 17 118/58 (78) Room Air 11/28/18 17:04 95 Intake and Output 11/29/18 07:00 Intake Total 420 ml Balance 420 ml Intake Oral 420 ml # Voids 2 General Appearance: Alert/Awake/No Acute Distress Neurological: No Gross deficits Respiratory: No Respiratory Distress Abdomen: Soft, Non-Tender, Non-Distended, Fundus Firm Extremities: No Cyanosis,Clubbing or Edema Psychological: Alert & Oriented X3, Appropriate Mood & Affect Result Diagram: 11/28/18 0556 Assessment and Plan 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 She is considering Mirena IUD vs. vasectomy. F/u in office in 2 weeks. ELDER AMATO DO Nov 29, 2018 08:27
--- NOTE | 2018-11-29 08:29 | OB/GYN Discharge Summary ---
Discharge Summary Reason for Hosp/Final Diag: (1) (spontaneous vaginal delivery) Hospital Course & Plan: Pt had spontaneous labor followed by . No complications. Normal course. Lates Vital Signs Vital Signs Date Time Temp Pulse Resp B/P (MAP) Pulse Ox O2 Delivery O2 Flow Rate FiO2 11/28/18 23:58 97.5 61 17 118/58 (78) Room Air 11/28/18 17:04 95 Weight (Pounds): 187 Result Diagram: 11/28/18 0556 Condition: Improved Discharge: Home, Self [facility] Meds Active Scripts Fluconazole (DIFLUCAN) 150 Mg Tablet, 150 MG PO QDAY for Yeast infection, #2 TAB 0 Refills Take 1 tab today and then 1 more tab in 3 days Prov:HEATHER COOK CNChana 11/15/18 Reported Medications [place]-3 Fatty Acids/Fish Oil (FISH OIL 1,000 MG CAPSULE) 1 Each Capsule, 1 EACH PO DAILY, CAPSULE 11/27/18 Folic Acid (FOLIC ACID) 1 Mg Tablet, 1 MG PO QDAY, TAB 04/09/18 Lactobacillus Combination No.4 (PROBIOTIC) Unknown Strength Capsule, PO, CAPSULE 02/01/18 Multivitamin (DAILY MULTIPLE VITAMIN) Unknown Strength Tablet, PO DAILY 02/01/18 Ascorbic Acid (VITAMIN C) 500 Mg Tablet, 500 MG PO, TAB 08/12/17 Cholecalciferol (Vitamin D3) (VITAMIN D3) 1,000 Unit Tablet, 1000 UNIT PO, TAB 08/12/17 Follow up with: [facility] [place]-[facility] [phone] Follow up in: 2 wks PO Discharge Diet: As Tolerates Discharge Activity: No Heavy Lifting x 6 wks, Pelvic Rest (nothing in vagina for 6 weeks, including tampons and intercourse) ELDER AMATO DO Nov 29, 2018 08:29
[2018-11-29] MEDS ORDERED: IBUP800T37 PO (08:33)
[2018-11-29] MEDS: DOCUSATE CALCIUM 240 MG CAP PO SCH (08:40)
== END 2018-11-29 12:28 | disposition home or self-care (01) | DRG 807 ==
LOC: OB 14:39
PROVIDERS: ADMIT Obstetrics & Gynecology; ATTEND Obstetrics & Gynecology
PROC: 10E0XZZ Delivery of Products of Conception, External Approach (ICD-10-PCS; principal; 2018-11-27)
PROC: 0HQ9XZZ Repair Perineum Skin, External Approach (ICD-10-PCS; 2018-11-27)
DX: O69.81X0 Labor and delivery complicated by cord around neck, without compression, not applicable or unspecified (principal); Z37.0 Single live birth; O70.0 First degree perineal laceration during delivery; Z3A.40 40 weeks gestation of pregnancy
CPT/HCPCS: 36415; 85025; 85027; 86703; 86850; 86900; 86901; J2405; J7120; S0020

== ENCOUNTER 2019-02-22 13:05 | Outpatient (RCR) | payer OTHER ==
[2018-11-27 15:00] VITALS: BMI 28.2
[~2019-02-22 13:05] MED LIST changes: +MECL25TA27 PO; +OMEG-11 PO
--- NOTE | 2019-02-22 16:24 | PT INITIAL EVALUATION ---
MEDICAL DIAGNOSIS: R42 Vertigo TREATMENT DIAGNOSIS: L posterior canal BPPV DATE OF ONSET: 01/18/19 SUBJECTIVE: Khushbu Hassan presents to PT for spinning vertigo, onset about 5 weeks ago, intermittent and seconds in latency. She denies viral infections, blows to the head, antibiotics, hearing loss. She feels out-of-sync most of the time. REHAB PROBLEM LIST: Decreased Balance, Altered Gait PREVIOUS MEDICAL HISTORY: Healthy, 3 months post-, 2nd baby. 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 OBJECTIVE: Posture: Midline head, heels together, normal postural sway. ROM: Cervical PROM WNL without nystagmus. Special Tests: Positive L Hallpike for one upbeating and torsional nystagmus, symptoms and L head thrust for one corrective saccade. Mobility: No symptoms with transfers, or bed mobility. Gait: Gait with head turn with mild R LE weaving. Balance: LOB with tandem stand, eyes shut. ASSESSMENT: Khushbu Hassan presents with L posterior canal BPPV. She did well with Too's maneuver to canalith repositioning and in started on a vestibular-ocular reflex HEP. Short Term Goals/Patient's Goals 1-2 weeks: No out-of-sync feeling or spinning vertigo with all ADL's. PLAN: Patient to be seen for Neuromuscular Re-ed, Gait Trg/Balance Trg, Home Exercise Program 1x/Week up to 2 Weeks Thank you for this referral. If you have any questions, comments, or concerns about this report or plan, please contact me at . GUILLERMOD
--- NOTE | 2019-03-11 12:35 | PT PLAN OF CARE ---
Physician: Dr. Reagan Yan Patient is being seen: once Therapist: Ibeth Cook PT Medical Diagnosis: R42 Vertigo Treatment Diagnosis: L posterior canal BPPV Date of Onset: 01/18/19 Date of Initial Evaluation: 02/22/19 Date patient was last seen: 02/22/19 Number of treatments: 1 Number of cancellations/No shows: 0 INTERVENTIONS:, Neuromuscular Re-ed, Home Exercise Program GOALS/PATIENT'S GOAL: 1-2 weeks: No out-of-sync feeling or spinning vertigo with all ADL's. met Patient Compliance: Excellent Prognosis: Excellent Reasons for discontinuing therapy: S: Khushbu hasn't called for an appointment in two weeks. She'd cleared her posterior canal well with the Too maneuver on 02/22/19. O: Special Tests: After Too's maneuver, there wasn't any nystagmus with Hallpike test. A/P: Khushbu Hassan did well with canalith clearing. She and I agreed that she would make an appointment in 1-2 weeks if she needed to be seen again, otherwise I would DC PT. As she hasn't called, I'll DC PT. Thank you. MOISES
== END 2019-02-22 18:00 | disposition home or self-care (01) ==
LOC: PT 13:05
PROVIDERS: ATTEND Internal Medicine
DX: R42 Dizziness and giddiness (principal)
CPT/HCPCS: 97161